=== PATIENT | male | born 1990 | race African-American/Black ===

== ENCOUNTER 2022-05-23 00:57 | Inpatient (IN) | payer SELFPAY ==
[2022-05-23] VITALS (1135 sets, daily range): BP systolic 135–174; BP diastolic 91–125; PULSE 80–95; TEMP 97.8–98.5; O2SAT 62–100
[~2022-05-23] VITALS: Ht 180.3 cm; Wt 77.9 kg
[2022-05-23] MEDS ORDERED: KLOR-CON20 MEQ PO (01:17)
[2022-05-23] MEDS ORDERED: ALDACTONE 25MG25 M1 PO (01:17)
[2022-05-23] MEDS ORDERED: APRESOLINE50 MG PO (01:18)
[2022-05-23] MEDS ORDERED: CATAPRES 0.1MG0.1 MG PO (01:18)
[2022-05-23] MEDS ORDERED: LASIX 20MG TABL20 MG PO (01:19)
[2022-05-23] MEDS ORDERED: COREG12.5 MG PO (01:20)
[2022-05-23] MEDS ORDERED: NORVASC 10MG10 MG PO (01:20)
[2022-05-23 01:27] LABS: BASO % 0.4 % (0.0-2.0); EOS # 0.5 K/mm3 (0.0-0.7); EOS % 4.6 % (0.0-4.0); GRAN # 6.9 K/mm3 (1.4-6.5); GRAN % 66.6 % (42.2-75.2); HEMATOCRIT 38.9 % (42.0-52.0); HEMOGLOBIN 12.4 g/dl (13.5-18.0); LYMPH # 2.4 K/mm3 (1.2-3.4); LYMPH % 22.7 % (20.0-51.0); MEAN CELL VOLUME 81 fl (80.0-100.0); MEAN CORPUSCULAR HEMOGLOBIN 26 pg (27-31); MEAN CORPUSCULAR HGB CONC 32 g/dl (33.0-37.0); MEAN PLATELET VOLUME 9.5 fl (7.4-10.4); MONO # 0.6 K/mm3 (0.1-0.6); MONO % 5.5 % (1.7-9.3); PLATELET COUNT 296 K/mm3 (130-400); RED BLOOD COUNT 4.82 M/mm3 (4.20-5.60); REDCELL DISTRIBUTION WIDTH-CV 15.9 % (11.5-14.5)
[2022-05-23 01:40] LABS: ALBUMIN 3.4 gm/dL (3.5-5.0); BILIRUBIN,TOTAL 1.2 mg/dL (0.2-1.2); CALCIUM 9.4 mg/dL (8.4-10.2); CREATININE, serum 1.69 mg/dL (0.72-1.25); POTASSIUM 4.4 mmol/L (3.5-4.5); TOTAL PROTEIN 6.7 gm/dL (6.2-8.1)
[2022-05-23 01:47] LABS: TROPONIN-I 0.093 ng/mL (0.00-0.033)
[2022-05-23 03:06] LABS: ARTERIAL BLD GAS O2 SATURATION 95.1 % (92-100); ARTERIAL BLD GAS TCO2 CT 27.3; ARTERIAL BLOOD GAS BASE EXCESS 4.9 (-2-2); ARTERIAL BLOOD GAS HCO3 26.4 meq/L (22-26); ARTERIAL BLOOD GAS PCO2 30.1 mmHg (35-45); ARTERIAL BLOOD GAS PO2 65.6 mmHg (80-100); ARTERIAL BLOOD GAS pH 7.56 (7.35-7.45)
[2022-05-23 03:15] LABS: C-REACTIVE PROTEIN 1.26 mg/dL (0.00-0.50); MAGNESIUM 1.9 mg/dL (1.6-2.6)
[2022-05-23 03:34] LABS: COLLECTION METHOD CLEAN CATCH
[2022-05-23 03:35] LABS: THYROID STIMULATING HORMONE 2.715 uIU/mL (0.350-4.940)
[2022-05-23 03:49] LABS: TRICYCLIC ANTIDEPRESS URINE NEGATIVE
[2022-05-23 03:51] LABS: SQUAMOUS EPITHELIAL 0-2 /hpf (0-10); URINE BACTERIA Rare /hpf (NONE SEEN); URINE RBC 0-2 /hpf (0-2)
[2022-05-23 03:57] LABS: URINE APPEARANCE Clear (CLEAR/HAZY); URINE COLOR Yellow (YELLOW)
[2022-05-23 03:58] LABS: URINE BLOOD Negative (NEGATIVE); URINE GLUCOSE Negative (NEGATIVE); URINE KETONE Negative (NEGATIVE); URINE NITRATE Negative (NEGATIVE); URINE PROTEIN(semi-quant) 1+ (NEGATIVE); URINE UROBILINOGEN 0.2 E.U/dL (0.2-1.0)
--- NOTE | 2022-05-23 04:23 | NUR ---
PT ARRIVED TO UNIT AT THIS TIME. REPORT RECEIVED FROM KAYLA TAVARES. PT IS VERY DROWSY AND CANNOT STAY AWAKE. PT ADMISSON ATTEMPTED TO COMPLETE. PT UNABLE TO ANSWER QUESTIONS APPROPRIATELY. PT RESPONDS TO PAINFUL STIMULI AND WILL REMAIN AWAKE FOR VERY SHORT PERIODS OF TIME, BUT WILL NOT ANSWER QUESTIONS. PT BED PLACED IN THE LOW POSITION AND BED ALARM ON.
[2022-05-23 06:24] LABS: ARTERIAL BLD GAS O2 SATURATION 96.8 % (92-100); ARTERIAL BLD GAS TCO2 CT 26.8; ARTERIAL BLOOD GAS BASE EXCESS 1.7 (-2-2); ARTERIAL BLOOD GAS HCO3 25.7 meq/L (22-26); ARTERIAL BLOOD GAS PCO2 38.2 mmHg (35-45); ARTERIAL BLOOD GAS PO2 85.5 mmHg (80-100); ARTERIAL BLOOD GAS pH 7.45 (7.35-7.45)
--- NOTE | 2022-05-23 09:00 | NUR ---
Patient drowsy and mostly responds by shaking head "yes" and "no". However, follows commands and able to take water and pills withou difficulty. Denies any concens or needs at this time. Call light left within reach.
--- NOTE | 2022-05-23 20:40 | NUR ---
PT ASSESSMENT COMPLETE. PT IS MORE ALERT THAN PREVIOUS NIGHT. PT SLEEPS BETWEEN DISTURBANCES, BUT IS ABLE TO STAY AWAKE AND ANSWER QUESTIONS APPROPRIATELY. PT ADMISSION COMPLETED DURING THIS INTERACTION DUE TO PT BEING COOPERATIVE. PT ALERT AND ORIENTED X4 - ABLE TO ANSWER WHERE HE WAS, WHY HE WAS HERE, THE CURRENT MONTH AND YEAR. PT REFUSES TO TAKE JEANS OFF THAT ARE UNDERNEATH THE GOWN. PTS SACCRAL AREA HAS NOT BEEN ASSESSED DUE TO PT REFUSAL. PT GIVEN A SNACK UPON REQUEST AND CALL LIGHT WITHIN REACH.
[2022-05-24] VITALS (529 sets, daily range): BP systolic 120–163; BP diastolic 88–118; PULSE 70–80; TEMP 97.7–98; O2SAT 92–100
--- NOTE | 2022-05-24 03:58 | NUR ---
0100- SPOKE WITH ARINA CALABRESE ABOUT PTS BLOOD PRESSURE INCREASING DESPITE NITRO GTT TITRATIONS. PTS DIASTOLIC CONTINUES TO RISE INTO THE 120S. NEW ORDERS BEING PLACED AT THIS TIME. SPOKE WITH ARINA CALABRESE AGAIN ABOUT PTS BLOOD PRESSURES CONTINUING TO REMAIN HIGH DESPITE NITRO GTT TITRATIONS. NEW ORDERS BEING PLACED TO TREAT CONDITION.
--- NOTE | 2022-05-24 04:08 | NUR ---
PT GTT TITRATED DOWN DUE TO PT COMPLAINING OF A HEADACHE. PT HAS TYLENOL FOR HEADACHE FROM THE GTT. PT RECENTLY TOOK TYLENOL AND IT IS NOT WITHIN TIME FRAME FOR ANOTHER DOSE.
[2022-05-24 05:54] LABS: BASO % 0.3 % (0.0-2.0); EOS # 0.6 K/mm3 (0.0-0.7); EOS % 6.4 % (0.0-4.0); GRAN # 6.1 K/mm3 (1.4-6.5); GRAN % 68.5 % (42.2-75.2); HEMATOCRIT 44.9 % (42.0-52.0); LYMPH # 1.6 K/mm3 (1.2-3.4); LYMPH % 18.1 % (20.0-51.0); MEAN CELL VOLUME 78 fl (80.0-100.0); MEAN CORPUSCULAR HEMOGLOBIN 25 pg (27-31); MEAN CORPUSCULAR HGB CONC 32 g/dl (33.0-37.0); MEAN PLATELET VOLUME 9.7 fl (7.4-10.4); MONO # 0.6 K/mm3 (0.1-0.6); MONO % 6.6 % (1.7-9.3); PLATELET COUNT 324 K/mm3 (130-400); RED BLOOD COUNT 5.73 M/mm3 (4.20-5.60); REDCELL DISTRIBUTION WIDTH-CV 15.5 % (11.5-14.5)
[2022-05-24 06:12] LABS: HEMOGLOBIN 14.5 g/dl (13.5-18.0)
[2022-05-24 06:29] LABS: CALCIUM 9.6 mg/dL (8.4-10.2); CHOLESTEROL RISK RATIO 4.5; CREATININE, serum 1.33 mg/dL (0.72-1.25)
--- NOTE | 2022-05-24 08:49 | NUR ---
SW met with patient at bedside to complete intake. Patient's girlfriend Dedra Bertrand ([phone]) laying in bed with the patient sleeping. Patient reports that he lives in [place], but will stay with Dedra at her place in [place]. Patient is independent with his ADL's and IADL's. He does not utilize any home DME equipment to assist with ambulation and has no home oxygen needs. Patient denies having a DPOA-HC but utilizes the [facility] pharmacy on [address] in [place] for prescriptions. Patient does not have a DPOA-HC at this time but wishes to create one appointing Dedra. Patient completes form and this SW along with patients RN witness. Copy placed on the patients chart. Original with additional copy provided to the patient.
[2022-05-24] MEDS ORDERED: COREG 25MG25 MG/TAB PO (12:35)
--- NOTE | 2022-05-24 13:52 | NUR ---
EDUCAITON WAS GIVEN TO PT WITH GIRLFRIEND BRITTANI BEDSIDE. PT STATES HE FEELS SAFE TO GO HOME, UNDERSTANDS ALL DISCHARGE INSTRUCTIONS AND WILL FOLLOW UP WITH CARDIOLOGY June. PT AMBULATED OFF THE UNIT, LEFT WITH ALL BELONGINGS.
== END 2022-05-24 13:58 | disposition home or self-care (01) | DRG 280 ==
LOC: COL.ER 00:57 → ICU 02:53 → EDBEDREQ 02:58 → ICU 12:57
PROVIDERS: Nurse Practitioner; Nurse Practitioner Family; ADMIT Internal Medicine
DX: I13.0 Hypertensive heart and chronic kidney disease with heart failure and stage 1 through stage 4 chronic kidney disease, or unspecified chronic kidney disease (principal); I21.4 Non-ST elevation (NSTEMI) myocardial infarction; I50.23 Acute on chronic systolic (congestive) heart failure; J96.01 Acute respiratory failure with hypoxia; I16.1 Hypertensive emergency; N17.9 Acute kidney failure, unspecified; I42.8 Other cardiomyopathies; D50.9 Iron deficiency anemia, unspecified; F41.1 Generalized anxiety disorder; F15.10 Other stimulant abuse, uncomplicated; F12.10 Cannabis abuse, uncomplicated; N18.2 Chronic kidney disease, stage 2 (mild); F17.210 Nicotine dependence, cigarettes, uncomplicated; Z91.048 Other nonmedicinal substance allergy status; Z91.14 Patient's other noncompliance with medication regimen
CPT/HCPCS: J0360; J1644; J1940; J2060; J7050